=== PATIENT | male | born 1965 | race Caucasian/White ===

== ENCOUNTER 2024-01-12 11:16 | Emergency (ER) | payer OTHER, SELFPAY ==
[2024-01-12 11:23] VITALS: BP 115/80
--- NOTE | 2024-01-12 13:19 | ED.MUSCINJ ---
HPI-Injury
General
Chief Complaint: Musculo-Skeletal Complaint
Source: patient
Exam Limitations: none
Time Seen by Provider: 01/12/24 12:51
History of Present Illness-Injury
Initial Injury comments:
58-year-old male presents complaining of continued right knee pain starting 2 weeks ago. He was getting out of a boat and had to put his knee down to support his weight and suddenly felt a pain underneath his kneecap. Since then it has been
painful and slightly swollen. No other complaints at this time
Past History
Past History
ED Past Medical History: COPD and Other (Cirrhosis, liver transplant)
ED Past Surgical History: Orthopedic (Hip replacement) and Other (Liver transplant)
Social History
Tobacco: Vaping
Phy Exam
Physical Exam
Physical Exam:
General: Well-appearing male no acute respiratory distress
Musculoskeletal exam: Right knee small effusion. Able to straight leg raise. Flexion is to 90 degrees posterior joint line nontender he is tender anteriorly over the inferior portion of the patella. Knee stable ligament exam
Skin is without erythema
Injury Course
Orders/Labs/Results
Orders:
Orders
01/12/24 11:27
CR Knee- Right 4 Or More View* Urgent
Comment:
Reason For Exam: injury, pain
MDM/Problems Addressed
Differential Diagnosis Includes:
Right knee discomfort. Question contusion for sprain versus fracture versus degenerative joint disease. Do not suspect septic arthritis
X-rays of the right knee were personally visualized by me and are negative for acute bony abnormality. There is a small effusion.
Suspect underlying strain. Will place in knee immobilizer. Patient is a liver transplant patient he knows a dose of Tylenol he can take. Recommended rest and orthopedic follow-up. He has an orthopedic doctor
*Critical Care Note
Total Time (30-74mins, 75-104mins- exclusive of procedures): Not Applicable
ED Attending Note
-
Portions of this chart may have been created with voice recognition software.� Occasional wrong word or��sound alike� substitutions may have occurred due to the inherent limitations of voice recognition software.
Discharge Plan
Departure
Patient Disposition: Home (Routine Discharge)
Date of Disposition: 01/12/24
Time of Disposition: 13:21
Patient with high blood pressure during this ER visit?: No
Discharge Problem:
Acute knee pain
Instructions: Muscle and Bone Pain (DC)
Prescriptions:
No Action
multivitamin Tablet
1 tab PO DAILY
amiodarone 200 mg Tablet
200 mg PO DAILY
sulfamethoxazole-trimethoprim 400-80 mg Tablet
1 tab PO DAILY
pravastatin 10 mg Tablet
10 mg PO DAILY
pantoprazole 40 mg Tablet,Delayed Release (Dr/Ec)
40 mg PO DAILY
diphenhydramine HCl [Benadryl] 25 mg Capsule
50 mg PO DAILY PRN (Reason: itching)
buspirone 10 mg Tablet
10 mg PO BID
niacin 500 mg Tablet
500 mg PO DAILY
albuterol sulfate 90 mcg/actuation Hfa Aerosol Inhaler
2 puff INHALATION R Q6 PRN (Reason: sob/wheezing)
tacrolimus 1 mg Capsule
2 mg PO Q12H
escitalopram oxalate 20 mg Tablet
20 mg PO DAILY
insulin aspart U-100 [Novolog FlexPen U-100 Insulin] 100 unit/mL (3 mL) Insulin Pen
4 unit SC ACHS
cholecalciferol (vitamin D3) [Vitamin D3] 25 mcg (1,000 unit) Tablet
25 mcg PO DAILY
insulin glargine [Lantus Solostar U-100 Insulin] 100 unit/mL (3 mL) Insulin Pen
8 unit SC HS
Eliquis 5 mg Tablet
5 mg PO BID
magnesium oxide 400 mg magnesium Tablet
400 mg PO BID
fluticasone propion-salmeterol [Wixela Inhub] 250-50 mcg/dose blister with device
1 ea inhalation R BID
doxycycline hyclate 100 mg capsule
100 mg PO BID
oxycodone 10 mg Tablet
10 mg PO QIDPRN PRN (Reason: pain) 7 Days Qty: 28 0RF
Patient Comments:
07/23/2022: last filled 07/16/22, 28 tabs for 7 days from [id number]
Xtampza ER 27 mg Cap,Sprinkl,Er12hr(Dont Crush)
27 mg PO Q12H
Patient Comments:
07/23/2022: last filled 06/30/22, 60 tabs for 30 days from [facility]
trazodone 100 mg tablet
100 mg PO HS
amlodipine 10 mg tablet
10 mg PO DAILY
propranolol 20 mg tablet
20 mg PO BID
guaifenesin [Mucinex] 600 mg Tablet Extended Release 12hr
600 mg PO Q12 Qty: 0 0RF
nicotine 7 mg/24 hr Patch 24 Hour
7 mg transdermal DAILY Qty: 0 0RF
budesonide 0.5 mg/2 mL Suspension For Nebulization
0.5 mg inhalation R BID Qty: 60 0RF
ipratropium-albuterol 0.5 mg-3 mg(2.5 mg base)/3 mL Solution For Nebulization
3 ml inhalation R Q4HPRN PRN (Reason: shortness of breath/wheezing) Qty: 90 0RF
prednisone 10 mg tablet
10 mg PO DAILY Qty: 30 0RF
Rx Instructions:
4 tabs daily for 3 days, 3 tabs daily for 3 days, 2 tabs daily for 3 days, 1 tab daily for 3 days.
Referrals:
NONE,* [Family Provider] -
Activity Restrictions/Additional Instructions:
Rest. Use brace for support. Continue with Tylenol for pain. Follow-up with your orthopedic doctor for further
Interventions
Interventions:
*Risk Screen - Suicide Last Done: 01/12/24 11:50
*General Assessment Last Done: 01/12/24 11:23
*Neglect/Abuse Screening Last Done: 01/12/24 11:50
*ED COVID-19 Vaccine History Last Done: 01/12/24 11:23
ED-Musculoskeletal Assessment Last Done: 01/12/24 11:49
Discharge Date and Time
Print Language: NICARAGU[place]
== END 2024-01-12 13:45 | disposition home or self-care (01) ==
LOC: EMR 11:16
PROVIDERS: EMERGENCY PHYSICIAN Emergency Medicine
DX: M25.561 Pain in right knee (principal); M25.461 Effusion, right knee; X58.XXXA Exposure to other specified factors, initial encounter; J44.9 Chronic obstructive pulmonary disease, unspecified; F17.290 Nicotine dependence, other tobacco product, uncomplicated; Z94.4 Liver transplant status
CPT/HCPCS: 99283; 29505; 73564